=== PATIENT | female | born 1960 | race Hispanic/Latino ===

== ENCOUNTER 2018-05-14 10:09 | Emergency (ER) | payer SELFPAY ==
[~2018-05-14] VITALS: Ht 157.5 cm; Wt 81.7 kg
[2018-05-14] MEDS ORDERED: LISINOPRIL10 MG PO (10:29)
[2018-05-14] MEDS ORDERED: PANTOPRAZOLE SO40 MG PO (12:05)
[2018-05-14] MEDS ORDERED: ZOFRAN ODT4 MG PO (12:05)
[2018-05-14] MEDS ORDERED: NORCO 5-325 TA1 EACH PO (12:05)
== END 2018-05-14 12:27 | disposition home or self-care (01) ==
LOC: ED 10:09
DX: K80.70 Calculus of gallbladder and bile duct without cholecystitis without obstruction (principal); I10 Essential (primary) hypertension; Z79.899 Other long term (current) drug therapy
CPT/HCPCS: 80053; 83690; 85025; 96361; 96374; 96375; 99284; J1885; J2405; J2550; J7030

== ENCOUNTER 2018-06-10 07:05 | Day surgery (SDC) | payer SELFPAY ==
[~2018-06-10] VITALS: Ht 157.5 cm; Wt 85.7 kg
[~2018-06-10 07:05] MED LIST: LISINOPRIL10 MG PO; NORCO 5-325 TA1 EACH PO; PANTOPRAZOLE SO40 MG PO; ZOFRAN ODT4 MG PO
--- NOTE | 2018-06-10 10:28 | NUR ---
06/10/18 Joanna8 Connie Olsen 1015 PT ARRIVED TO PACU, ORAL AIRWAY IN PLACE. RESP EVEN AND UNLABORED. PT NONAROUSABLE ON 10L VIA MASK.
--- NOTE | 2018-06-10 11:44 | NUR ---
PT ARRIVED FROM PACU, REPORT RECV'D. FAMILY BROUGHT INTO ROOM. THROUGH FAMILY INTERPRETATION PT RATES PAIN 5/10. PT ALSO REPORTS FEELING "WHOOZY AND SEEING DOUBLE." DISCUSSED SIDE EFFECTS OF ANESTHESIA AND THAT THESE SYMPTOMS WILL RESOLVE WITH REST. LET PT AND FAMILY KNOW THAT [facility] FROM THE [facility] WILL RETURN TO INTERPERATE AT 1200. FAMILY AND PT UNDERSTAND.
--- NOTE | 2018-06-10 12:58 | NUR ---
DAUGHTER ANSWERING QUESTIONS AND INTERPRETING. REQ 7UP AND 1 PAIN PILL. DENIES NAUSEA. RATES PAIN8/10 BUT EYES CLOSED AND RESTING HAVE TO TOUCH SHOULDER FOR RESPONSE. HAS EATEN JELLO AND DRANK APPROX 100MLS 7UP.
--- NOTE | 2018-06-10 14:13 | OR ---
[facility] [address], [place] [address] Signed DATE OF OPERATION: 06/10/2018 SURGEON: Waqas Menon MD PREOPERATIVE DIAGNOSIS: Cholecystitis with cholelithiasis. POSTOPERATIVE DIAGNOSES: 1. Cholecystitis with cholelithiasis. 2. Cholesterolosis. PROCEDURE: Laparoscopic cholecystectomy with intraoperative cholangiogram. ESTIMATED BLOOD LOSS: None. FINDINGS: Intraoperative cholangiogram was unremarkable. She had one large stone in the gallbladder around 1 x 2 cm and she had cholesterolosis. INDICATIONS: Carol is a 58-year-old female, who has been having trouble with right upper quadrant abdominal pain that made worse with meals. She has had nausea, vomiting, and anorexia. She went to her primary care provider as well as emergency room here in [place], [place]. She was referred to my office from the emergency room. Ultrasound showed about 3 cm stone or cluster of stones in the fundus of her gallbladder. The gallbladder wall is not thickened. There is no pericholecystic fluid and the common bile duct was good at 5 mm. A chest x-ray was also done, it was fine. With her daughter helping to interpret, I gave them both Kr[employer] brochure on the gallbladder, one written in Marshallese, one written in Nepali. We went through that together and explained the location and function of the gallbladder. We discussed laparoscopic versus open cholecystectomy. We reviewed the expected intraop and postop course. There is risk to surgery including, but not limited to bleeding, infection, scarring, change in contour of the skin, damage to bowel, damage to main bile duct, incisional hernias and other unforeseen comorbidities. She had expressed understanding and wished to proceed. PROCEDURE NOTE: Carol was taken into the operating room and placed in a supine position under general endotracheal tube anesthesia. She was given preoperative antibiotics along with Electronically Signed By: WAQAS MENNO MD 06/10/18 1413 PATIENT NAME: CAROL HAQUE OPERATIVE REPORT DATE OF : 60 REPORT #: [id number] PHYSICIAN: WAQAS MENON MD PCP: NO PRIMARY CARE PHYSICIAN REPORT IS CONFIDENTIAL AND NOT TO BE RELEASED WITHOUT AUTHORIZATION [facility] [address], [place] [address] Signed subcutaneous heparin. SCDs were utilized. All trocars were then placed in usual positions under direct visualization of camera without difficulty. The gallbladder was grasped and elevated in the right upper quadrant. There were some adhesions from the omentum to gallbladder. They were taken down bluntly and with the cautery. The triangle of Calot was then dissected free and the clip had been placed on the cystic artery and it was divided. The intraoperative cholangiocatheter was inserted into the gallbladder as it was coming into the cystic duct. The intraoperative cholangiogram was performed. There was no evidence of a filling defect in the common bile duct. The contrast flowed readily into the duodenum. The cystic duct stump was then secured with a PDS Endoloop along with a clip to clarita its location. After this, the gallbladder was slowly and carefully removed from the gallbladder fossa with the help of the cautery and placed into an EndoCatch bag. The right upper quadrant was irrigated and suctioned out until clear. We used our laparoscopic suturing device to pass 0 Vicryl suture on either side of the fascia of the subxiphoid trocar site. This was tied down to close this fascia primarily. After this, the gas was allowed to escape and all the trocars were removed along with the gallbladder and the stone. The stone was opened on the back table by our circulating nurse. Pictures were taken throughout for photodocumentation. We then closed the fascia of the supraumbilical trocar site with interrupted [id number] 0 Vicryl sutures. Local anesthetic was injected into all trocar sites. Each trocar site was irrigated and suctioned out until clear. The skin and dermis of each trocar site was closed with interrupted 3-0 subcuticular Monocryl sutures. Dry gauze and tape were then applied to all incisions. Carol was then awakened from her anesthesia, extubated in the OR, taken into recovery room in stable condition. Waqas Menon MD ALB/MODL /[id number] cc: Waqas Menon MD Copies: WAQAS MENON MD ~ Electronically Signed By: WAQAS MENON MD 06/10/18 1413 PATIENT NAME: CAROL HAQUE OPERATIVE REPORT DATE OF : 60 REPORT #: [id number] PHYSICIAN: WAQAS MENON MD PCP: NO PRIMARY CARE PHYSICIAN REPORT IS CONFIDENTIAL AND NOT TO BE RELEASED WITHOUT AUTHORIZATION
--- NOTE | 2018-06-10 14:27 | NUR ---
IN TO CHECK ON PT, PT SLEEPING. AWAKENS EASILY TO VOICE. VITALS STABLE. PT STATES SHE IS HAVING "LITTLE PAIN". ASSISTED UP TO BATHROOM WITH STANDBY ASSIST OF RN AND DAUGHTER. PT VOID 400 MLS. PT BACK TO BED. PT'S DAUGHTER STATES PT WOULD LIKE TO STAY A "LITTLE BIT LONGER TO REST." NO FURTHER NEEDS AT THIS TIME. CALL LIGHT IN REACH, DAUGHTER IN ROOM.
== END 2018-06-10 14:55 | disposition home or self-care (01) ==
LOC: DS 07:05
PROVIDERS: Colon & Rectal Surgery
PROC: BF03YZZ Plain Radiography of Gallbladder and Bile Ducts using Other Contrast (ICD-10-PCS; 2018-06-10)
PROC: 0FT44ZZ Resection of Gallbladder, Percutaneous Endoscopic Approach (ICD-10-PCS; principal; 2018-06-10 08:45)
DX: K80.10 Calculus of gallbladder with chronic cholecystitis without obstruction (principal); I10 Essential (primary) hypertension; H91.90 Unspecified hearing loss, unspecified ear; J45.909 Unspecified asthma, uncomplicated; E66.9 Obesity, unspecified; K21.9 Gastro-esophageal reflux disease without esophagitis; Z79.899 Other long term (current) drug therapy; Z68.34 Body mass index [BMI] 34.0-34.9, adult
CPT/HCPCS: 00790; 74300; J0690; J1100; J1170; J1644; J1885; J2250; J2405; J2550; J2704; J3010; J7120; Q9967